=== PATIENT | female | born 1975 | race Caucasian/White ===

== ENCOUNTER 2023-07-01 00:43 | Emergency (ER) | payer MEDICAID, OTHER ==
[~2023-07-01] VITALS: Ht 167.6 cm; Wt 64.9 kg
[2023-07-01] MEDS ORDERED: HYDROCODONE/APAP 5/325MG TABLET ONE (01:12)
[2023-07-01] MEDS: HYDROCODONE/APAP 5/325MG TABLET PO ONE (01:13)
[2023-07-01] MEDS ORDERED: HYDR-3972 PO (01:13)
[2023-07-01 01:34] VITALS: BP 134/79; TEMP 98; O2SAT 98
== END 2023-07-01 01:35 | disposition home or self-care (01) ==
LOC: ER 00:47
DX: S82.041A Displaced comminuted fracture of right patella, initial encounter for closed fracture (principal); E11.9 Type 2 diabetes mellitus without complications; W01.0XXA Fall on same level from slipping, tripping and stumbling without subsequent striking against object, initial encounter; Y93.89 Activity, other specified; Y92.89 Other specified places as the place of occurrence of the external cause; Y99.8 Other external cause status
CPT/HCPCS: 73564-TC